=== PATIENT | female | born 1960 | race Native Hawaiian/Other Pacific Islander ===

== ENCOUNTER 2019-08-26 14:04 | Outpatient (CLI) | payer OTHER | END 2019-08-26 19:40 | disposition home or self-care (01) | LOC: MAMMO 14:04 | DX: R92.8 Other abnormal and inconclusive findings on diagnostic imaging of breast (principal) | CPT/HCPCS: G0279 ==

== ENCOUNTER 2019-12-24 11:15 | Outpatient (CLI) | payer OTHER ==
[2019-12-24 11:35] LABS: PLATELET COUNT 377 K/uL (152-353)
[2019-12-24 11:52] LABS: POTASSIUM 4.3 mmol/L (3.6-5.2)
== END 2019-12-24 20:11 | disposition home or self-care (01) ==
LOC: LABW 11:15
PROVIDERS: Family Medicine
DX: Z00.00 Encounter for general adult medical examination without abnormal findings (principal); I10 Essential (primary) hypertension; F90.9 Attention-deficit hyperactivity disorder, unspecified type; N32.89 Other specified disorders of bladder; F41.1 Generalized anxiety disorder; M15.0 Primary generalized (osteo)arthritis; E34.9 Endocrine disorder, unspecified; E56.9 Vitamin deficiency, unspecified; E87.6 Hypokalemia; K58.9 Irritable bowel syndrome, unspecified
CPT/HCPCS: 36415; 80053; 80061; 81000; 82306; 82607; 83036; 84443; 85027

== ENCOUNTER 2020-06-29 11:48 | Outpatient (CLI) | payer OTHER | END 2020-06-29 22:38 | disposition home or self-care (01) | LOC: LAB 11:48 | DX: U07.1 COVID-19 (principal); Z20.828 Contact with and (suspected) exposure to other viral communicable diseases | CPT/HCPCS: 87635; G2023; U0003 ==

== ENCOUNTER 2020-10-01 18:04 | Outpatient (CLI) | payer OTHER ==
[2020-10-01 19:15] LABS: PLATELET COUNT 385 K/uL (152-353)
[2020-10-01 20:02] LABS: POTASSIUM 4.5 mmol/L (3.6-5.2)
== END 2020-10-01 20:15 | disposition home or self-care (01) ==
LOC: LAB 18:04
PROVIDERS: Nurse Practitioner Family
DX: F41.9 Anxiety disorder, unspecified (principal); F32.9 Major depressive disorder, single episode, unspecified; F90.0 Attention-deficit hyperactivity disorder, predominantly inattentive type; Z13.89 Encounter for screening for other disorder; Z79.890 Hormone replacement therapy; E53.8 Deficiency of other specified B group vitamins; E55.9 Vitamin D deficiency, unspecified
CPT/HCPCS: 80053; 82306; 82607; 82670; 83036; 84144; 84403; 84439; 84443; 85027; 86900; 86901

== ENCOUNTER 2020-11-11 12:22 | Outpatient (CLI) | payer OTHER | END 2020-11-11 22:14 | disposition home or self-care (01) | LOC: LAB 12:22 | PROVIDERS: ATTEND Family Medicine | DX: Z86.19 Personal history of other infectious and parasitic diseases (principal) | CPT/HCPCS: 86769 ==

== ENCOUNTER 2021-01-11 15:24 | Outpatient (CLI) | payer OTHER | END 2021-01-11 19:35 | disposition home or self-care (01) | LOC: MAMMO 15:24 | PROVIDERS: ATTEND Specialist | DX: Z12.31 Encounter for screening mammogram for malignant neoplasm of breast (principal) ==

== ENCOUNTER 2021-04-05 16:01 | Outpatient (CLI) | payer OTHER | END 2021-04-05 23:44 | disposition home or self-care (01) | LOC: LAB 16:01 | PROVIDERS: ATTEND Nurse Practitioner Family | DX: F41.1 Generalized anxiety disorder (principal); M19.90 Unspecified osteoarthritis, unspecified site; F90.0 Attention-deficit hyperactivity disorder, predominantly inattentive type; E55.9 Vitamin D deficiency, unspecified; Z79.890 Hormone replacement therapy; I10 Essential (primary) hypertension; E78.5 Hyperlipidemia, unspecified; E06.3 Autoimmune thyroiditis; E05.90 Thyrotoxicosis, unspecified without thyrotoxic crisis or storm; Z79.899 Other long term (current) drug therapy | CPT/HCPCS: 82306; 82670; 84144; 84403; 84439; 84443 ==